=== PATIENT | female | born 1970 | race Caucasian/White ===

== ENCOUNTER 2017-02-03 08:00 | Emergency (ER) | payer SELFPAY ==
[~2017-02-03] VITALS: Ht 165.1 cm; Wt 56.0 kg
[2017-02-03 08:09] VITALS: BP 130/76; PULSE 79; RESP 16; TEMP 97.9; O2SAT 98
--- NOTE | 2017-02-03 08:26 | PD ---
HPI Chief Complaint: Injury Time Seen by Provider: 08:21 Travel History International Travel<30 days: No Contact w/Intl Traveler<30days: No Traveled to known affect area: No History of Present Illness HPI This patient complains of left ankle pain. She stepped off her porch and twisted the left ankle 12 hours ago. Symptoms severity is moderate. She has pain with weightbearing. PFSH Past Medical History ?: Not LMP: MENOPAUSAL Social History Alcohol Use: No Tobacco Use: No Substance Use: No Allergies-Medications (Allergen,Severity, Reaction): Coded Allergies: Latex (Verified Allergy, Intermediate, BLISTERING, 02/03/17) Reported Meds & Prescriptions Reported Meds & Active Scripts Active Reported Levothyroxine (Levothyroxine Sodium) 75 Mcg Tab 75 Mcg PO DAILY Review of Systems HENT: No: Headaches Cardiovascular: No: Chest Pain or Discomfort Respiratory: No: Cough Physical Exam Narrative Psych: Normal mood and affect. Normal insight and judgment. SKIN: Focused skin assessment reveals no rash or ulcers. Skin is warm and dry. Palpation shows no induration or nodules. Left ankle: Tenderness of the lateral malleolus is present. No open wound or visible swelling. Data Data Last Documented VS Vital Signs Date Time Temp Pulse Resp B/P Pulse Ox O2 Delivery O2 Flow Rate FiO2 02/03/17 08:09 97.9 79 16 130/76 98 Orders Ankle, Complete ([id number]) (02/03/17 ) [facility] Medical Decision Making Medical Screen Exam Complete: Yes Emergency Medical Condition: Yes Medical Record Reviewed: Yes Differential Diagnosis Fracture, dislocation, sprain Narrative Course I have reviewed the patient's electronic medical record. I reviewed her left ankle x-rays which are normal Discussed ice elevation and limit weightbearing etc. I gave her crutches. Diagnosis Primary Impression: Soft tissue injury of left ankle Qualified Code: S99.912A - Soft tissue injury of left ankle, initial encounter Additional Instructions: The patient was advised to follow up with their physician and return if they worsen. Limit weightbearing until it is pain-free Ice and elevate Med/Other Pt SpecificInfo: Other Disposition: 01 DISCHARGE HOME Condition: Stable Efren May MD Feb 03, 2017 08:26
[2017-02-03] MEDS ORDERED: LEVO75TA3 PO (08:40)
--- NOTE | 2017-02-03 08:53 | RADRPT ---
EXAM DATE/TIME: 02/03/2017 08:35 [facility] COMPARISON: No previous studies available for comparison. INDICATIONS : Left ankle pain. MEDICAL HISTORY : None. SURGICAL HISTORY : Thyroidectomy. ENCOUNTER: Initial ACUITY: 1 day PAIN SCORE: 7/10 LOCATION: Left ankle. FINDINGS: 3 views the left ankle demonstrate no fracture or dislocation. Ankle mortise is intact. Mineralizatio n is within normal limits and there is no significant arthropathy. No soft tissue abnormality or radi opaque foreign body is identified. CONCLUSION: No left ankle abnormality is identified. Renaldo Khalil MD on February 03, 2017 at 8:51 Board Certified Radiologist. This report was verified electronically.
== END 2017-02-03 09:36 | disposition home or self-care (01) ==
LOC: PHED 08:00
DX: S99.912A Unspecified injury of left ankle, initial encounter (principal); X50.1XXA Overexertion from prolonged static or awkward postures, initial encounter; Y92.008 Other place in unspecified non-institutional (private) residence as the place of occurrence of the external cause
CPT/HCPCS: 73610; 99283; E0113

== ENCOUNTER 2017-02-05 21:00 | Emergency (ER) | payer SELFPAY ==
[~2017-02-05] VITALS: Ht 165.1 cm; Wt 56.4 kg
[~2017-02-05 21:00] MED LIST: LEVO75TA3 PO
[2017-02-05 21:06] VITALS: BP 131/74; PULSE 82; RESP 16; TEMP 98.3; O2SAT 98
--- NOTE | 2017-02-05 22:21 | PD ---
HPI Chief Complaint: Musculoskeletal Complaint Time Seen by Provider: 21:50 Travel History International Travel<30 days: No Contact w/Intl Traveler<30days: No Traveled to known affect area: No History of Present Illness HPI 36-year-old female presents to the emergency room for reevaluation of left ankle pain and swelling after injuring it 2 days ago. Patient everted her left ankle on stairs and has had significant pain with ambulation since. No pain at rest. States she has great improvement with pain with 400 mg ibuprofen. She returns today concerned because swelling, bruising has worsened and it occasionally feels hot to the touch. X-rays taken 2 days ago were negative. Patient was discharged with crutches and told not to bear weight for 2 days. States she has started to bear weight but it is too painful. She has not followed up with a primary care physician. History Past Medical Histgory Tetanus Vaccination: Unknown Social History Alcohol Use: No Tobacco Use: No Allergies-Medications (Allergen,Severity, Reaction): Coded Allergies: Latex (Verified Allergy, Intermediate, BLISTERING, 02/05/17) Reported Meds & Prescriptions Reported Meds & Active Scripts Active Reported Levothyroxine (Levothyroxine Sodium) 75 Mcg Tab 75 Mcg PO DAILY Review of Systems Except as stated in HPI: all other systems reviewed are Neg Physical Exam Narrative GENERAL: Well-nourished, well-developed female in no acute distress. Afebrile. Ambulatory with crutches. SKIN: Focused skin assessment warm/dry. Moderate edema of the left lower extremity. HEAD: Normocephalic. EYES: No scleral icterus. No injection or drainage. NECK: Supple, trachea midline. No JVD or lymphadenopathy. CARDIOVASCULAR: Regular rate and rhythm without murmurs, gallops, or rubs. RESPIRATORY: Breath sounds equal bilaterally. No accessory muscle use. MUSCULOSKELETAL: No cyanosis. Moderate edema of the left ankle. 2+ dorsalis pedis pulse. Limited range of motion secondary to pain. Extreme tenderness to palpation over the lateral malleolus. Data Data Last Documented VS Vital Signs Date Time Temp Pulse Resp B/P Pulse Ox O2 Delivery O2 Flow Rate FiO2 02/05/17 21:17 18 02/05/17 21:06 98.3 82 131/74 98 Room Air MDM Medical Screen Exam Complete: Yes Emergency Medical Condition: No Differential Diagnosis Ankle sprain Narrative Course 46-year-old female presents to the emergency room for a reevaluation of left ankle pain and swelling after eversion injury that occurred 2 days ago. Patient came on day of injury and had negative x-rays. She was discharged with crutches. Reports continued pain, worsening swelling, and burning pain over the lateral malleolus. Physical exam is unremarkable. Left lower extremity is neurovascularly intact. Patient was informed that this is ankle sprain and her symptoms are expected. She is stable for discharge. No urgent or emergent medical conditions at this time. A medical screening exam was performed: At the time of evaluation the presenting medical condition was determined not to be of an emergent nature. The patient was given the option of receiving additional care, but declined. Patient was given options for additional community resources from which to obtain care. The Patient Has Been advised to seek medical attention for their presenting complaint. The patient has been advised to return to the ER at any time if an emergent condition develops. Primary Impression: Encounter for medical screening examination Patient Instructions: General Instructions Departure Forms: Work Release, Enter return to work date: Feb 07, 2017 Tests/Procedures Disposition: 01 DISCHARGE HOME Condition: Stable Lillian Gonzalez Feb 05, 2017 22:21
== END 2017-02-05 22:18 | disposition left against medical advice (07) ==
LOC: PHEFT 21:00
DX: M25.572 Pain in left ankle and joints of left foot (principal)
CPT/HCPCS: 99281

== ENCOUNTER 2017-05-14 17:55 | Emergency (ER) | payer SELFPAY ==
[~2017-05-14] VITALS: Ht 165.1 cm; Wt 56.2 kg
[2017-05-14 18:01] VITALS: BP 122/85; PULSE 67; RESP 16; TEMP 98; O2SAT 97
--- NOTE | 2017-05-14 18:25 | PD ---
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 Also with some white vaginal discharge. Pt also with some redness, swelling in the labia and has been shaving that region. States it feels raw. Denies any fever, chest pain, sob, n/v, abdominal pain, focal weakness or numbness. Pt is not sexually active and last menstrual period was 1 year ago. Denies any history of STI including herpes. PFSH Past Medical History Diminished Hearing: No Thyroid Disease: Yes Past Surgical History Other Surgery: Yes (thyroidectomy) Social History Alcohol Use: No Tobacco Use: No Substance Use: No Allergies-Medications (Allergen,Severity, Reaction): Coded Allergies: latex (Unverified Allergy, Intermediate, BLISTERING, 05/14/17) Reported Meds & Prescriptions Reported Meds & Active Scripts Active Reported Levothyroxine (Levothyroxine Sodium) 75 Mcg Tab 75 Mcg PO DAILY Review of Systems Except as stated in HPI: all other systems reviewed are Neg Physical Exam Narrative GENERAL: 47yo F not in distress. SKIN: Focused skin assessment warm/dry. HEAD: Atraumatic. Normocephalic. CARDIOVASCULAR: Regular rate and rhythm. No murmur appreciated. RESPIRATORY: No accessory muscle use. Clear to auscultation. Breath sounds equal bilaterally. GASTROINTESTINAL: Abdomen soft, non-tender, nondistended. PELVIC: +Small amount of white vaginal discharge. Mild redness in labia majora. Small erythematous papules on the follicles. MUSCULOSKELETAL: No obvious deformities. No clubbing. No cyanosis. No edema. NEUROLOGICAL: Awake and alert. No obvious cranial nerve deficits. Motor grossly within normal limits. Normal speech. PSYCHIATRIC: Appropriate mood and affect; insight and judgment normal. Data Data Last Documented VS Vital Signs Date Time Temp Pulse Resp B/P (MAP) Pulse Ox O2 Delivery O2 Flow Rate FiO2 05/14/17 18:01 98.0 67 16 122/85 (97) 97 Orders Orders Gc And Chlamydia Pcr (05/14/17 18:20) Wet Prep Profile (05/14/17 18:20) Urinalysis - C+S If Indicated (05/14/17 18:20) Ed Urine Pregnancytest Poc (05/14/17 18:20) Labs Laboratory Tests Test 05/14/17 18:30 Urine Color YELLOW Urine Turbidity CLEAR Urine pH 6.0 Urine Specific [place] 1.010 Urine Protein NEG mg/dL Urine Glucose (UA) NEG mg/dL Urine Ketones TRACE mg/dL Urine Occult Blood TRACE Urine Nitrite NEG Urine Bilirubin NEG Urine Leukocyte Esterase NEG Urine RBC 0-3 /hpf Urine WBC 3-5 /hpf Urine Squamous Epithelial Cells 0-5 /hpf Microscopic Urinalysis Comment CULT NOT INDICATED Clue Cells (Wet Prep) NONE SEEN Vaginal Trichomonas (Wet Prep) NONE SEEN Vaginal Yeast (Wet Prep) NONE SEEN MDM Medical Decision Making Medical Screen Exam Complete: Yes Emergency Medical Condition: Yes Differential Diagnosis Bacterial vaginosis vs. yeast vs. UTI Narrative Course 47yo F with dysuria, and vaginal discharge for 3 days. Pelvic exam consistent with some folliculitis so will treat with antibiotics. UA showed WBC 3-5. Culture not indicated. Urine negative. Wet prep negative. Return precautions given. Diagnosis Primary Impression: Folliculitis Patient Instructions: General Instructions Departure Forms: Tests/Procedures Additional Instructions: Please follow up with your primary care physician in 3-7 days. Return to the ED if symptoms worsen. Med/Other Pt SpecificInfo: Prescription(s) given Scripts Acetaminophen (Tylenol) 325 Mg Tab 650 MG PO Q6H Y for PAIN SCALE 1 TO 4, #20 TAB 0 Refills Prov: Judy Calixto DO 05/14/17 Cephalexin (Cephalexin) 500 Mg Cap 500 MG PO Q12H for Infection for 7 Days, #14 CAP 0 Refills Prov: Judy Calixto DO 05/14/17 Disposition: 01 DISCHARGE HOME Condition: Stable Judy Calixto DO May 14, 2017 18:25
[2017-05-14 19:09] LABS: BLOOD, URINE TRACE (NEG); GLUCOSE,URINE NEG (NEG); KETONE, URINE TRACE mg/dL (NEG); NITRITE,URINE NEG (NEG)
[2017-05-14 20:02] LABS: URINE COLOR YELLOW (YELLW/STRAW)
[2017-05-14 20:04] LABS: COMMENT (UR) CULT NOT INDICATED; CULTURE IF INDICATED CULT NOT INDICATED; RBC, URINE 0-3 /hpf (0-3); SQUAMOUS EPITHELIAL CELL URINE 0-5 /hpf (0-5)
[2017-05-14 20:30] VITALS: BP 114/72; PULSE 74; RESP 14; O2SAT 100
[2017-05-14] MEDS ORDERED: TYLE325T PO (20:45)
[2017-05-14] MEDS ORDERED: CEPH500C PO (20:45)
[2017-05-15 04:09] LABS: CHLAMYDIA PCR NOT DETECTED (NOT DETECT); NEISSERIA PCR NOT DETECTED (NOT DETECT)
== END 2017-05-14 21:18 | disposition home or self-care (01) ==
LOC: PHED 17:55
DX: L73.9 Follicular disorder, unspecified (principal)
CPT/HCPCS: 81001; 84703; 87210; 87491; 87591; 99283